=== PATIENT | female | born 2000 | race American Indian/Alaskan Native ===

== ENCOUNTER 2021-06-13 21:18 | Emergency (ER) | payer OTHER ==
[2021-06-13 21:33] VITALS: BP 175/98
--- NOTE | 2021-06-13 22:14 | ED Physician Documentation ---
History of Present Illness - Stated complaint Stated Complaint: DIARRHEA,VOMITING,ABD PX,FATIGUE - Chief complaint Chief Complaint: General - History obtained from History obtained from: Patient - Additonal information Additional information: Patient is 20-year-old female presenting to the emergency department with multiple complaints including fatigue, headache, upper airway congestion, nausea, vomiting, abdominal pain, diarrhea. Requests Covid testing. Reports close contact with an individual known to be Covid positive, her . Reports being fully vaccinated for the novel coronavirus. Review of Systems Ten Systems: 10 systems reviewed and negative Constitutional: reports: Fever Eyes: denies: Loss of vision Ears: denies: Loss of hearing Nose: reports: Rhinorrhea / runny nose Throat: denies: Dental pain / toothache Cardiac: denies: Chest pain / pressure, Palpitations GI: reports: Abdominal Pain, Nausea, Vomiting, Diarrhea : denies: Dysuria PD PAST MEDICAL HISTORY - Present Medications Home Medications: Ambulatory Orders Medication Instructions Recorded Confirmed Ondansetron Odt [Zofran] 4 mg TL Q6H PRN #10 tablet 06/13/21 - Allergies Allergies/Adverse Reactions: Allergies Allergy/AdvReac Type Severity Reaction Status Date / Time No Known Drug Allergies Allergy Verified 06/13/21 21:33 PD ED PE NORMAL - Vitals Vital signs reviewed: Yes - General General: Alert and oriented X 3 - HEENT HEENT: Atraumatic, PERRL - Neck Neck: Supple, no meningeal sign - Cardiac Cardiac: RRR - Respiratory Respiratory: No respiratory distress, Clear bilaterally - Abdomen Abdomen: Normal bowel sounds, Soft, Non tender - Female Female : Deferred - Rectal Rectal: Deferred - Back Back: No CVA TTP - Derm Derm: Normal color - Extremities Extremities: No deformity - Neuro Neuro: Alert and oriented X 3 Results - Vitals Vitals: Vital Signs - 24 hr 06/13/21 21:29 Temperature 36.9 C Heart Rate 100 Respiratory 18 Rate Blood Pressure 175/98 H O2 Saturation 100 Oxygen O2 Source Room air PD MEDICAL DECISION MAKING - ED course Complexity details: d/w patient ED course: Is 20-year-old female presenting to the emergency department with request for Covid screening. Endorsed for multiple symptoms including headache, congestion, cough, abdominal pain, nausea, vomiting, diarrhea, constipation. Reported managing her symptoms at home with ibuprofen and Imodium. Declined blood draws. Physical exam was somewhat reassuring and that her abdomen was soft, without guarding, rebound rigidity and her vitals were all within normal limits. Outpatient Covid swab was drawn. Additionally will discharge on course of Zofran. Encourage patient to return to the emergency department for new or worsening symptoms or follow-up with primary care as needed. Departure - Departure Disposition: 01 Home, Self Care Clinical Impression: Nausea and vomiting, Viral syndrome, Diarrhea Condition: Good Instructions: ED Diarrhea Viral, ED Viral Syndrome Prescriptions: Ondansetron Odt [Zofran] 4 mg TL Q6H PRN #10 tablet PRN Reason: Nausea / Vomiting Comments: Is to care of you today at [facility]. Your Covid test will take a few days to result. Please isolate and self quarantine as much as possible until the results are available. Please stay well-hydrated. Continue to use Motrin and Imodium at home as needed. I will also be writing a prescription for medication for nausea, please take as directed. Please follow-up with your primary care doctor soon as you are able. If it anytime you have any new or worsening symptoms please not hesitate to return to the emergency department.
== END 2021-06-13 22:26 | disposition home or self-care (01) ==
LOC: ED 21:18
DX: B34.9 Viral infection, unspecified (principal); Z20.822 Contact with and (suspected) exposure to COVID-19; R11.2 Nausea with vomiting, unspecified; R19.7 Diarrhea, unspecified; R51.9 Headache, unspecified
CPT/HCPCS: 80053; 83690; 85025; 99283